=== PATIENT | male | born 1975 | race Caucasian/White ===

== ENCOUNTER 2017-05-17 13:25 | Observation (INO) | payer OTHER, SELFPAY ==
[~2017-05-17] VITALS: Ht 177.8 cm; Wt 108.0 kg
[~2017-05-17 13:25] MED LIST: ANSAID100 MG; BENTYL20 MG PO; CIPRO500 MG PO; COZAAR 25 MG TA25 M1 PO; CRESTOR10 MG PO; FLOMAX0.4 MG PO; FLURBIPROFEN100 MG PO; KEFLEX500 MG PO; LEVSIN0.125 MG SUBLING; LIORESAL 10 MG10 MG PO; LISINOPRIL10 MG PO; LOPRESSOR50 MG; NABUMETONE 500500 M1 PO; NAPROSYN500 MG PO; NEURONTIN 300300 M1 PO; NF PO; NORCO 10-325 T1 EACH PO; NORCO 5-325 TA1 EACH PO; NORVASC2.5 MG PO; OXYCODONE-ACET1 EAC2 PO; PERCOCET 10-321 EAC1 PO; PERCOCET 10-321 EACH PO; TOPROL XL25 MG PO; TOPROL XL50 MG; ULTRAM 50MG TAB50 MG PO; VENTOLIN HFA 1818 GM INH; ZESTORETIC 20-1 EAC3 PO
[2017-05-17 13:33] VITALS: BP 156/109
[2017-05-17 15:41] LABS: ABSOLUTE BASOPHILS 0.1 thou/uL (0.0-0.2); ABSOLUTE EOSINOPHILS 0.2 thou/uL (0.0-0.7); ABSOLUTE LYMPHOCYTES 2.2 thou/uL (0.8-5.3); ABSOLUTE MONOCYTES 0.5 thou/uL (0.0-1.2); BASOPHILS 1.2 %; EOSINOPHILS 2.3 %; HEMATOCRIT 39.4 % (42.0-52.0); LYMPHOCYTES 27.7 %; MCH 30.5 pg (26.0-34.0); MCHC 35.5 g/dL (28.0-37.0); MCV 85.9 fL (80.0-100.0); MONOCYTES 6.1 %; MPV 8.3 fl. (7.2-11.1); NUCLEATED RBCS 0 /100WBC; PLATELET COUNT* 202 thou/uL (150-400); POLYS 62.7 %; RBC 4.58 mil/uL (4.50-6.00); RDW-CV 12.5 % (10.5-14.5)
[2017-05-17 15:44] LABS: URINE BILIRUBIN NEGATIVE (Negative); URINE BLOOD NEGATIVE (Negative); URINE CLARITY CLEAR; URINE COLOR YELLOW; URINE GLUCOSE-RANDOM NEGATIVE (Negative); URINE KETONES NEGATIVE (Negative); URINE LEUKOCYTES-REFLEX NEGATIVE (Negative); URINE NITRITE-REFLEX NEGATIVE (Negative); URINE PROTEIN NEGATIVE (Negative); URINE SPECIFIC GRAVITY >= 1.030 (1.005-1.030); URINE UROBILINOGEN 0.2 E.U./dl (0.2-1.0)
[2017-05-17 15:51] LABS: CALCIUM 8.7 mg/dL (8.5-10.1); POTASSIUM 3.7 mmol/L (3.5-5.1)
[2017-05-17 15:56] LABS: ALBUMIN 4.1 g/dL (3.4-5.0); TOTAL BILIRUBIN 0.9 mg/dL (<0.1-1.0); TOTAL PROTEIN 7.4 g/dL (6.4-8.2)
[2017-05-17 16:45] VITALS: BP 159/99
[2017-05-17 21:35] VITALS: BP 149/83
[2017-05-18 04:26] VITALS: BP 158/99
[2017-05-18 05:33] LABS: HEMATOCRIT 38.3 % (42.0-52.0); HEMOGLOBIN 13.5 gm/dL (14.0-18.0); MCH 30.3 pg (26.0-34.0); MCHC 35.1 g/dL (28.0-37.0); MCV 86.1 fL (80.0-100.0); RBC 4.45 mil/uL (4.50-6.00); RDW-CV 12.4 % (10.5-14.5); WBC 7.4 thou/uL (4.0-11.0)
[2017-05-18 05:43] LABS: CALCIUM 8.2 mg/dL (8.5-10.1); POTASSIUM 4.3 mmol/L (3.5-5.1)
[2017-05-18 07:40] VITALS: BP 152/72
[2017-05-18 10:00] VITALS: BP 152/72
[2017-05-18 10:03] VITALS: BP 152/72
--- NOTE | 2017-05-19 12:10 | S ---
[place] [address] SURGICAL PATH RPT PROCEDURE Name: YASEMIN HILLS Room: [address] Willy#: [id number] Admission: 05/17/17 Date of : 75 Discharge: 05/18/17 Report #: [id number] Path Case #: [id number] PATHOLOGY REPORT COLLECTION DATE: 05/17/2017 RECEIVED DATE: 05/18/2017 SUBMITTING PHYS: Dr. Linda Luke OTHER PHYS: TOMASA Burch SPECIMEN(S) RECEIVED: A.Appendix * * * * * * * * * * * * FINAL DIAGNOSIS: Appendix: - Chronic and acute appendicitis, periappendicitis and serositis, with incidental benign periappendiceal lymph node. (ELBA:[facility]; 05/19/2017) PATHOLOGIST: Freedom Carter M.D. REPORT ELECTRONICALLY SIGNED BY: Freedom Carter M.D. DATE/TIME: 05/19/2017 12:09 * * * * * * * * * * * * GROSS PATHOLOGY: Received in formalin labeled "ConnorYasemin richardson bear" and consists of a glistening pink vermiform appendix measuring 6.2 cm in length by 0.9 cm in diameter. The mesoappendix measures 5.0 x 3.0 cm. There are punctate areas of hemorrhage at the mesoappendiceal surfaces, distally. The margin is inked. The lumen varies in diameter from less than 0.1 to 0.3 cm. The wall is intact. The mucosa is harris. The specimen is totally submitted A1-A7. (ALESIA; 05/18/2017) CLINICAL HISTORY: RUQ pain, acute appendicitis INITIAL CPT CODE(S): A; 47068 Professional services [place] [place] [address] Technical services performed by [facility] at [address] [place] [address], [facility] [address] [address]. [place] [address] SURGICAL PATH RPT PROCEDURE Name: YASEMIN HILLS Room: [address] Yanely Aguilera#: [id number] Admission: 05/17/17 Date of : 75 Discharge: 05/18/17 Report #: [id number] Path Case #: [id number] [facility] [place] [address] PHONE: [phone] DIRECTOR: Ervin Albert M.D. * * * END OF REPORT * * *
--- NOTE | 2017-05-30 11:34 | OP ---
[facility] [address] [place] [address] OPERATIVE REPORT Name: YASEMIN HILLS Room: [address] Willy#: [id number] Admission: 05/17/17 Attend Phys: Linda Luke MD Discharge: 05/18/17 Date of : 75 Report #: [id number] THIS REPORT FOR: //name// CC: Linda Luke Primary Care Physician Mimi Davis DICTATED BY: Reynaldo Montague DO DATE OF SERVICE: 05/17/2017 AGE: This is a 41-year-old male. PREOPERATIVE DIAGNOSIS: Acute appendicitis. POSTOPERATIVE DIAGNOSIS: Acute appendicitis. SURGEON: Linda Luke M.D. CO-SURGEON: Reynaldo Montague DO. CERTIFIED RECREATIONAL THERAPIST: Jules Bernstein, MS3. OPERATION PERFORMED: Laparoscopic appendectomy. ANESTHESIA: General and local. ESTIMATED BLOOD LOSS: Less than 20 mL. SPECIMENS REMOVED: Appendix. COMPLICATIONS: None. COMMENTS: Please see detailed dictation for full description. HISTORY OF PRESENT ILLNESS: The patient is a pleasant 41-year-old male who presented to the ER today for right lower quadrant abdominal pain. He states the pain started last night around 02:00 a.m. and woke him up out of sleep. He did actually fall back to sleep, woke up later this morning, but the pain was persistent. He states that the pain got increasingly worse throughout the day. So, he decided to present to the Emergency Room for further evaluation. Upon presenting, the patient had a lab work drawn, which was rather unremarkable and he had physical exam that showed signs concerning for acute appendicitis. A CAT scan was ordered and the patient did have CAT scan findings consistent with the same. General Surgery was consulted and the patient was subsequently seen in the ER. Upon complete history and physical, the [place] [address] OPERATIVE REPORT Name: REINIERYASEMIN Room: [address] Yanely Aguilera#: [id number] Admission: 05/17/17 Attend Phys: Linda Luke MD Discharge: 05/18/17 Date of : 75 Report #: [id number] symptoms as well as a positive physical exam that coincided with acute appendicitis. After reviewing his CAT scan, it was confirmed that the patient did have the same. After a thorough discussion with the patient, it was recommended that we perform a laparoscopic appendectomy. A detailed description of the procedure was reviewed indeed at length with the patient and his family member. Risks, benefits and complications were also discussed and include but are not limited to infection, bleeding, hernias at the incision sites, pain or numbness at the incision sites, need for an open procedure, injury to the bowel, possible abscess formation, anesthesia risks and other common complication associated with the procedure. The patient voiced complete understanding and wished to proceed. DESCRIPTION OF PROCEDURE: After the appropriate consents were obtained, the patient was taken to the operating room and laid in supine position. He had SCDs placed on his bilateral lower extremities. A Navas catheter was placed to decompress his bladder. His left arm was tucked to the side and safety strap was placed across his legs. All lines were placed by Anesthesia. He was subsequently sedated and intubated by Anesthesia without any difficulty. His abdomen was then prepped and draped in a standard sterile fashion. Perioperative antibiotics were given consistent with 2 grams of Ancef and 500 mg of Flagyl. A timeout was performed to correctly identify the patient and procedure. We then made a supraumbilical incision using a #11 blade scalpel. The subcutaneous tissue was then retracted bluntly using S retractors. Any bleeding that was occurring was taken care of using electrocautery. Once we encountered the anterior abdominal wall fascia, it was incised using electrocautery. The fascia was grasped between two Kochers and elevated. We extended our fascial incision inferiorly and then bluntly entered the abdominal cavity using a hemostat. A finger was used to sweep the incision to ensure there were no rik-incisional adhesions and none were present. We placed 2 stay sutures on each side of the abdominal fascia using 0 Vicryl suture. The Kvng trocar was then introduced into the abdomen and the abdomen was insufflated to 15 mmHg. Using a 5-mm 30-degree scope, we then placed it into the intra-abdominal cavity and performed an initial inspection. There were no gross abnormalities besides some mild adhesions in the left lower quadrant. We then turned our attention to the right lower quadrant. The patient was placed head down with tilt to the left. We placed a 5-mm trocar in the left lower quadrant of the abdomen as well as a 5-mm trocar in the suprapubic region of the abdomen. Both of these trocars were inserted using direct visualization. Using blunt bowel graspers, the small bowel was then swept medially and superiorly until we were able to visualize the cecum as well as a tinea on the cecum. The tinea was grasped and elevated. This allowed us to visualize our appendix, which was coursing retrocecally. The appendix was then flipped medially and grasped on the mesoappendix. Once the mesoappendix was grasped, we then elevated appendix toward the anterior abdominal wall. This allowed us to view the base of our appendix. Once the base was visualized, we made a window [facility] [address] [place] [address] OPERATIVE REPORT Name: YASEMIN HILLS Room: [address] Yanely Aguilera#: [id number] Admission: 05/17/17 Attend Phys: Linda Luke MD Discharge: 05/18/17 Date of : 75 Report #: [id number] between the mesoappendix and the appendix using a [place] dissector. Then, using Harmonic scalpel, we took the mesoappendix until we encountered the base of the appendix. Once we encountered the base, we then placed the camera on the left lateral quadrant port and placed an Endo-DONNELL stapler through the supraumbilical port. The stapler was then cocked up and placed directly on the base of the appendix. Ensuring there was nothing within our stapler besides the base of the appendix, we decided to fire the stapler. We did use a 45-mm blue load Endo-DONNELL on the base of the appendix. After doing so, the appendix was completely removed from the base of the cecum and it was placed within the EndoCatch pouch. We turned our attention back to our staple line and there appeared to be a very minimal amount of oozing from the most lateral aspect of the staple line. We decided to use some Surgicel to control this bleeding. After placing the Surgicel as well as applying some pressure, we were able to adequately visualize it. There was no further oozing from the region of the staple line. We did leave the Surgicel in place for further hemostatic protection. A suction upper stitcher was used to suction away any remaining blood and to adequately visualize our staple line as well. Once we were satisfied with hemostasis of the staple line, we then removed our 5-mm ports under direct visualization. The appendix was then removed through the supraumbilical incision. The patient's abdomen was then allowed to desufflate as we ensured there was no bleeding from each port site. We then closed the anterior abdominal wall fascia using [id number]-[id number]-[id number] 0 Vicryl suture and tying our previously placed lateral stay sutures. This allowed us to achieve adequate reapproximation of our anterior abdominal wall fascia. The skin was closed using inverted interrupted 4-0 Monocryl sutures. The 5-mm ports were closed in this same fashion. We did inject each incision site using a total of 30 mL of local anesthetic. The patient's abdomen was then cleaned and dried adequately and Dermabond glue was applied to each incision site as a direct act as a dressing. The patient was then allowed to awaken and was subsequently extubated in the OR. All counts were correct x 2 at the end of the procedure. Dr. Luke was present and scrubbed for the entirety of this procedure. We transferred the patient to PACU where he will be further admitted to the hospital for observation. <ELECTRONICALLY SIGNED> By: Linda Luke MD 05/30/17 1134 2100 [id number] Luke MD /wily
[2017-06-22] MEDS ORDERED: METOPROLOL TART25 MG PO (13:45)
[2017-06-22] MEDS ORDERED: LOSARTAN-HCTZ1 EAC1 PO (13:46)
[2017-06-22] MEDS ORDERED: PERCOCET 10-321 EACH PO ×4 (14:20→14:29)
[2017-06-22] MEDS ORDERED: LIORESAL 10 MG10 MG PO ×3 (14:20→14:28)
[2017-06-22] MEDS ORDERED: NABUMETONE 500500 M1 PO ×3 (14:20→14:28)
[2017-06-22] MEDS ORDERED: NEURONTIN 300300 M1 PO ×3 (14:20→14:28)
[2017-09-14] MEDS ORDERED: LIORESAL 10 MG10 MG PO (08:10)
[2017-09-14] MEDS ORDERED: NEURONTIN 300300 M1 PO (08:10)
[2017-09-14] MEDS ORDERED: PERCOCET 10-321 EACH PO (08:10)
[2017-09-14] MEDS ORDERED: NABUMETONE 500500 M1 PO (08:10)
[2017-12-07] MEDS ORDERED: PERCOCET 10-321 EACH PO (07:53)
[2017-12-07] MEDS ORDERED: LIORESAL 10 MG10 MG PO (07:53)
[2017-12-07] MEDS ORDERED: NEURONTIN 300300 M1 PO (07:53)
[2017-12-07] MEDS ORDERED: NABUMETONE 500500 M1 PO (07:53)
[2018-02-01] MEDS ORDERED: NABUMETONE 500500 M1 PO (08:13)
[2018-02-01] MEDS ORDERED: LIORESAL 10 MG10 MG PO (08:13)
[2018-02-01] MEDS ORDERED: PERCOCET 10-321 EACH PO (08:13)
[2018-02-01] MEDS ORDERED: NEURONTIN 300300 M1 PO (08:13)
== END 2017-05-18 14:30 | disposition home or self-care (01) ==
LOC: M.SUR 13:25 → M.ERS 13:25 → M.SUR 17:57 → M.ORTHSURG 18:18 → M.TBA-ER 18:18 → M.ORTHSURG 18:18
PROVIDERS: Nurse Practitioner Family; ADMIT Surgery
DX: K35.80 Unspecified acute appendicitis (principal); I10 Essential (primary) hypertension; E78.00 Pure hypercholesterolemia, unspecified; M50.30 Other cervical disc degeneration, unspecified cervical region; M16.0 Bilateral primary osteoarthritis of hip; M51.16 Intervertebral disc disorders with radiculopathy, lumbar region

== ENCOUNTER → 2017-07-15 | Outpatient (CLI) | payer OTHER ==
[~2017-07-15] MED LIST changes: +LOSARTAN-HCTZ1 EAC1 PO; +METOPROLOL TART25 MG PO
== END ==
LOC: M.ULTRA 16:00
DX: N50.3 Cyst of epididymis (principal); I86.1 Scrotal varices

== ENCOUNTER → 2017-08-20 | Outpatient (CLI) | payer OTHER | LOC: M.CT 12:00 | DX: R10.32 Left lower quadrant pain (principal) ==

== ENCOUNTER → 2017-08-25 | Outpatient (CLI) | payer OTHER ==
[2017-08-26 05:13] LABS: PROLACTIN 12.7 ng/mL (4.0-15.2)
[2017-08-26 09:09] LABS: TESTOSTERONE 314 ng/dL (264-916)
== END ==
LOC: M.LAB 16:03
PROVIDERS: Urology
DX: E29.1 Testicular hypofunction (principal); N50.819 Testicular pain, unspecified

== ENCOUNTER → 2018-02-22 | Outpatient (CLI) | payer OTHER | LOC: M.RAD 16:31 | DX: M17.0 Bilateral primary osteoarthritis of knee (principal) ==

== ENCOUNTER → 2018-04-11 | Outpatient (CLI) | payer OTHER | LOC: M.MRI 06:18 | DX: M23.91 Unspecified internal derangement of right knee (principal); M23.92 Unspecified internal derangement of left knee; M25.761 Osteophyte, right knee; M25.762 Osteophyte, left knee ==

== ENCOUNTER → 2018-07-12 | Day surgery (SDC) | payer OTHER ==
[~2018-07-12] MED LIST changes: +BACLOFEN20 MG PO; +CYMBALTA60 MG PO; +LOPRESSOR50 PO; +NEURONTIN600 MG PO
--- NOTE | ~2018-07-12 | OP ---
[address] [address] OPERATIVE REPORT Name: REINIERYASEMIN CHAMPAGNE Room: [facility]#: [id number] Admission: 07/12/18 Attend Phys: Rodrigo Locke II Discharge: Date of : 75 Report #: [id number] THIS REPORT FOR: //name// CC: Dyllan Guzmantings DATE OF SERVICE: 07/12/2018 PREOPERATIVE DIAGNOSES: Right knee chondromalacia with loose body. POSTOPERATIVE DIAGNOSES: 1. 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 2. Chondromalacia grade 3 medial femoral condyle. 3. Loose body measuring approximately 1 cm within the joint. PROCEDURE: 1. Right knee arthroscopic surgery with abrasion chondroplasty of the lateral femoral condyle down to bleeding bone. 2. Abrasion chondroplasty of the medial femoral condyle and bleeding bone. 3. Excision of loose body, 1 cm from the intraarticular region. SURGEON: Rodrigo Locke II, DO. PUBLIC AREA SUPERVISOR: DAMION Llamas. ANESTHESIA: Per operative record. ESTIMATED BLOOD LOSS: Minimal. ANTIBIOTICS: Per operative record. DRAINS: None. COMPLICATIONS: None. CONDITION OF THE PATIENT: Stable to recovery room. DESCRIPTION OF PROCEDURE: The patient was taken to the operative suite, placed supine on the operating table, given appropriate anesthesia. The patient's right knee was sterilely prepped and draped. Surgery began by a medial lateral portal incision. The arthroscope was advanced in the joint. There was found to be grade 3 chondromalacia of the lateral femoral condyle with loose fibrillated cartilage. Utilizing shaver, the loose cartilage was removed down to stable margins and then smoothed utilizing Coblation 1 in appropriate fashion. This shaver was utilized to remove the cartilage down to [place] [address] OPERATIVE REPORT Name: YASEMIN HILLS Room: [facility]#: [id number] Admission: 07/12/18 Attend Phys: Rodrigo Locke II Discharge: Date of : 75 Report #: [id number] was then turned to the medial femoral condyle which had shown grade 3 chondromalacia near the weightbearing on the medial surface. Utilizing a shaver, abrasion chondroplasty was performed down to bleeding bone along the regions of the medial femoral condyle and then smoothed using Coblation wand in appropriate fashion. Meniscus was probed and shown to be intact to both medial and lateral sides. ACL and PCL were intact. Upon probing of the PCL, there was noted to be a loose body present approximately 1 cm noted in the posterior aspect of the knee. This was removed utilizing shaver and graspers and morcellated in order to get out of the knee. Final irrigation of the knee was then performed showing no evidence of loose bodies. Knee was drained of arthroscopic fluid, closed with a 4-0 nylon in simple fashion. Dermabond and sterile dressings applied. The patient transferred to recovery room in stable condition. Counts were correct throughout the procedure. By: [id number] Locke II, DO /nt
[2018-07-12 10:22] LABS: HEMATOCRIT 43.5 % (42.0-52.0); HEMOGLOBIN 15.1 gm/dL (14.0-18.0); MCH 29.9 pg (26.0-34.0); MCHC 34.7 g/dL (28.0-37.0); MCV 86.1 fL (80.0-100.0); MPV 8.7 fl. (7.2-11.1); RBC 5.05 mil/uL (4.50-6.00); RDW-CV 12.9 % (10.5-14.5); WBC 8.2 thou/uL (4.0-11.0)
[2018-07-12 10:28] LABS: CALCIUM 8.8 mg/dL (8.5-10.1); CREATININE 1.1 mg/dL (0.6-1.3); POTASSIUM 3.9 mmol/L (3.5-5.1)
--- NOTE | 2018-07-12 17:10 | EKG ---
[place] [address] ELECTROCARDIOGRAM REPORT Name: REINIERYASEMIN IHSAN Room: [facility].#: [id number] Admission: 07/12/18 Attend Phys: Rodrigo Locke II Discharge: Date of : 75 Report #: [id number] THIS REPORT FOR: //name// [facility] Test Date: 2018-07-12 Test Time: 10:19:27 Pat Name: YASEMIN HILLS Department: Room: Gender: M Rabbit Fancier: : 1975 Requested By: Rodrigo Locke Order Number: [id number] Ebenezer MD: Hernan Gonzales Measurements Intervals [place] Rate: 59 P: -14 [place]: 149 QRS: 18 QRSD: 102 T: 3 QT: 436 QTc: 432 Interpretive Statements Sinus rhythm Baseline wander in lead(s) V4 Compared to ECG 10/14/2015 09:50:34 No significant changes Electronically Signed On 07-12-2018 17:10:07 CDT by Hernan Gonzales [email or web address] <ELECTRONICALLY SIGNED> By: Hernan Gonzales MD, [facility] 07/12/18 1710 1019 1019 Hernan Gonzales MD, FACC /EPI
== END | disposition home or self-care (01) ==
LOC: M.SUR 09:55
PROVIDERS: Orthopaedic Surgery
DX: M94.261 Chondromalacia, right knee (principal); M23.41 Loose body in knee, right knee; K37 Unspecified appendicitis

== ENCOUNTER 2018-07-19 04:45 | Emergency (ER) | payer OTHER ==
[~2018-07-19] VITALS: Ht 177.8 cm; Wt 97.5 kg
[2018-07-19] MEDS ORDERED: NORCO 5-325 TA1 EACH (04:59)
[2018-07-19 05:16] LABS: ABSOLUTE EOSINOPHILS 0.1 thou/uL (0.0-0.7); ABSOLUTE LYMPHOCYTES 1.6 thou/uL (0.8-5.3); ABSOLUTE MONOCYTES 0.4 thou/uL (0.0-1.2); ABSOLUTE NEUTROPHILS 5.8 thou/uL (1.6-8.1); BASOPHILS 0.4 %; EOSINOPHILS 1.1 %; HEMATOCRIT 47.9 % (42.0-52.0); HEMOGLOBIN 16.9 gm/dL (14.0-18.0); MCH 30.3 pg (26.0-34.0); MCHC 35.3 g/dL (28.0-37.0); MCV 85.8 fL (80.0-100.0); MONOCYTES 5.5 %; NUCLEATED RBCS 0 /100WBC; PLATELET COUNT* 279 thou/uL (150-400); RBC 5.58 mil/uL (4.50-6.00); RDW-CV 12.8 % (10.5-14.5)
[2018-07-19 05:37] LABS: INFLUENZA A ANTIGEN None Detected (None Detect); INFLUENZA B ANTIGEN None Detected (None Detect)
[2018-07-19 05:37] LABS: ALBUMIN 5.3 g/dL (3.4-5.0); ALKALINE PHOSPHATASE 98 U/L (46-116); ANION GAP 18 mmol/L (7-16); BUN 16 mg/dL (7-18); CHLORIDE 100 mmol/L (98-107); CO2 23 mmol/L (21-32); CREATININE 1.1 mg/dL (0.6-1.3); GLUCOSE 149 mg/dL (70-99); LIPASE 135 U/L (73-393); POTASSIUM 3.2 mmol/L (3.5-5.1); SGOT 21 U/L (15-37); SGPT 26 U/L (30-65); SODIUM 141 mmol/L (136-145); TOTAL BILIRUBIN 1.8 mg/dL (<0.1-1.0); TOTAL PROTEIN 9.1 g/dL (6.4-8.2); TROPONIN-I LEVEL <0.06 ng/mL (<0.06)
[2018-07-19] MEDS ORDERED: ZOFRAN ODT4 MG PO (06:42)
[2018-07-19 06:53] LABS: URINE BILIRUBIN NEGATIVE (Negative); URINE BLOOD NEGATIVE (Negative); URINE CLARITY CLEAR; URINE COLOR YELLOW; URINE GLUCOSE-RANDOM NEGATIVE (Negative); URINE KETONES 2+ (Negative); URINE LEUKOCYTES-REFLEX NEGATIVE (Negative); URINE NITRITE-REFLEX NEGATIVE (Negative); URINE PROTEIN NEGATIVE (Negative); URINE UROBILINOGEN 0.2 E.U./dl (0.2-1.0)
[2018-07-19 07:16] VITALS: BP 162/79
--- NOTE | 2018-07-19 10:05 | EKG ---
[place] [address] ELECTROCARDIOGRAM REPORT Name: YASEMIN HILLS Room: [facility]#: [id number] Admission: 07/19/18 Attend Phys: Discharge: 07/19/18 Date of : 75 Report #: [id number] THIS REPORT FOR: //name// [place] [facility] Test Date: 2018-07-19 Test Time: 05:01:39 Pat Name: YASEMIN HILLS Department: Room: Gender: M Soaker Helper: DANNI : 1975 Requested By: Any Duron Order Number: [id number] MD: Flo Alonso Measurements Intervals [place] Rate: 82 P: 37 [place]: 155 QRS: 41 QRSD: 100 T: 4 QT: 390 QTc: 456 Interpretive Statements Sinus rhythm Compared to ECG 07/12/2018 10:19:27 No significant changes Electronically Signed On 07-19-2018 10:05:06 CDT by Flo Alonso [email or web address] <ELECTRONICALLY SIGNED> By: Flo Alonso MD, [facility] 07/19/18 1005 500 0 Flo Alonso MD, FACC /EPI
== END 2018-07-19 07:16 | disposition home or self-care (01) ==
LOC: M.ERS 04:45
PROVIDERS: Emergency Medicine
DX: K52.9 Noninfective gastroenteritis and colitis, unspecified (principal); G89.29 Other chronic pain; M54.9 Dorsalgia, unspecified

== ENCOUNTER → 2018-12-29 | Outpatient (CLI) | payer OTHER ==
[~2018-12-29] MED LIST changes: +NORCO 5-325 TA1 EACH; +OXYCODONE-APAP1 EAC6 PO; +PERCOCET 7.5-31 EACH PO; +ZOFRAN ODT4 MG PO
== END ==
LOC: M.LAB 05:33
DX: E87.6 Hypokalemia (principal)

== ENCOUNTER → 2019-01-03 | Outpatient (CLI) | payer OTHER ==
[~2019-01-03] MED LIST changes: +OXYCODONE-APAP1 EAC4 PO; +PERCOCET PO; +VOLTAREN GEL 1100 G2 TOP
[2019-01-03 07:07] LABS: ABSOLUTE BASOPHILS 0.1 thou/uL (0.0-0.2); ABSOLUTE EOSINOPHILS 0.3 thou/uL (0.0-0.7); ABSOLUTE LYMPHOCYTES 1.6 thou/uL (0.8-5.3); ABSOLUTE MONOCYTES 0.4 thou/uL (0.0-1.2); ABSOLUTE NEUTROPHILS 3.6 thou/uL (1.6-8.1); BASOPHILS 1.8 %; EOSINOPHILS 4.2 %; HEMOGLOBIN 14.1 gm/dL (14.0-18.0); LYMPHOCYTES 26.2 %; MCH 30.1 pg (26.0-34.0); MCHC 35.3 g/dL (28.0-37.0); MCV 85.3 fL (80.0-100.0); MONOCYTES 6.7 %; MPV 8.7 fl. (7.2-11.1); NUCLEATED RBCS 0 /100WBC; PLATELET COUNT* 231 thou/uL (150-400); POLYS 61.1 %; RBC 4.69 mil/uL (4.50-6.00); RDW-CV 13.8 % (10.5-14.5)
[2019-01-03 07:15] LABS: CALCIUM 9.1 mg/dL (8.5-10.1); CREATININE 0.9 mg/dL (0.6-1.3); POTASSIUM 4.1 mmol/L (3.5-5.1)
[2019-01-03 07:20] LABS: TOTAL BILIRUBIN 0.7 mg/dL (<0.1-1.0); TOTAL PROTEIN 7.1 g/dL (6.4-8.2)
== END ==
LOC: M.NUC 06:49 → M.LAB 06:49 → M.NUC 07:30
PROVIDERS: Internal Medicine Gastroenterology
DX: K30 Functional dyspepsia (principal); K31.84 Gastroparesis; R10.9 Unspecified abdominal pain

== ENCOUNTER → 2019-05-01 | Outpatient (CLI) | payer OTHER ==
[2019-05-01 06:26] LABS: ABSOLUTE BASOPHILS 0.1 thou/uL (0.0-0.2); ABSOLUTE EOSINOPHILS 0.4 thou/uL (0.0-0.7); ABSOLUTE MONOCYTES 0.3 thou/uL (0.0-1.2); EOSINOPHILS 6.1 %; HEMATOCRIT 39.9 % (42.0-52.0); HEMOGLOBIN 14.2 gm/dL (14.0-18.0); LYMPHOCYTES 34.7 %; MCH 30.4 pg (26.0-34.0); MCHC 35.6 g/dL (28.0-37.0); MCV 85.2 fL (80.0-100.0); MONOCYTES 5.9 %; NUCLEATED RBCS 0 /100WBC; PLATELET COUNT* 254 thou/uL (150-400); POLYS 52.3 %; RBC 4.68 mil/uL (4.50-6.00); WBC 5.8 thou/uL (4.0-11.0)
[2019-05-01 06:40] LABS: ALBUMIN 4.2 g/dL (3.4-5.0); CALCIUM 8.6 mg/dL (8.5-10.1); POTASSIUM 3.4 mmol/L (3.5-5.1); TOTAL BILIRUBIN 0.4 mg/dL (<0.1-1.0); TOTAL PROTEIN 7.3 g/dL (6.4-8.2)
[2019-05-01 07:26] LABS: ESR (SEDRATE) 0 mm/hr (0-15)
== END ==
LOC: M.LAB 06:05
PROVIDERS: Internal Medicine Gastroenterology
DX: R10.11 Right upper quadrant pain (principal); R63.4 Abnormal weight loss

== ENCOUNTER → 2019-06-08 | Outpatient (CLI) | payer OTHER | LOC: M.NUC 07:24 | DX: R10.11 Right upper quadrant pain (principal) ==